=== PATIENT | male | born 1955 | race Caucasian/White ===

== ENCOUNTER 2021-06-19 09:45 | Day surgery (SDC) | payer BC, MEDICARE ==
[2021-06-19] MEDS: Sodium Chloride 0.9% 1,000 ML IV SCH (10:29)
[2021-06-19] MEDS ORDERED: fentaNYL 100 MCG/2 ML SDV ONE (12:10)
[2021-06-19] MEDS ORDERED: Propofol 200 MG/20 ML SDV ONE (12:10)
[2021-06-19] MEDS ORDERED: Midazolam 1 MG/ML 2 ML SDV ONE (12:10)
[2021-06-19 13:30] VITALS: BP 146/89; PULSE 45
--- NOTE | 2021-06-21 10:25 | OR ---
DATE OF PROCEDURE: 06/19/2021 SURGEON: Buster Isaacs MD PROCEDURE: Colonoscopy. FINDINGS: Normal colonoscopy. PREOPERATIVE DIAGNOSIS: Screening colonoscopy. POSTOPERATIVE DIAGNOSIS: Screening colonoscopy. RISKS: Risks, benefits, alternatives, and limitations including, but not limited to infection, bleeding, perforation, false positives and false negatives were explained to the patient and wished to proceed. PROCEDURE IN DETAIL: The patient was placed in left lateral decubitus position. Digital rectal exam was performed without abnormality. Scope was introduced and advanced atraumatically to the ileocecal valve. Scope was brought back to the ascending, transverse, descending colon, and retroflexed. No evidence of old or new blood. No masses. No polyps. No diverticulosis. No abnormalities on retroflexion. Greater than 8 minutes was spent removing the scope. The patient tolerated the procedure well. Approximately 90% of the luminal surface could be seen. Buster Isaacs MD /[id number]
== END 2021-06-19 14:00 | disposition home or self-care (01) ==
LOC: JP.SDS 09:45
PROVIDERS: ATTEND Surgery
DX: Z12.11 Encounter for screening for malignant neoplasm of colon (principal); I10 Essential (primary) hypertension
CPT/HCPCS: 45378; J2250; J2704; J3010; J7030

== ENCOUNTER 2021-09-20 06:03 | Emergency (ER) | payer BC, MEDICARE ==
[2021-09-20] MEDS ORDERED: Ketorolac 30 MG/ML SDV IM ONE (06:32)
[2021-09-20] MEDS ORDERED: Ondansetron 4 MG Tab.DIS PO ONE (06:34)
[2021-09-20 08:29] VITALS: BP 118/71; PULSE 57
== END 2021-09-20 09:15 | disposition home or self-care (01) ==
LOC: JP.ED 06:03
DX: R10.9 Unspecified abdominal pain (principal); I25.10 Atherosclerotic heart disease of native coronary artery without angina pectoris; E78.00 Pure hypercholesterolemia, unspecified; I10 Essential (primary) hypertension; Z79.82 Long term (current) use of aspirin; Z79.02 Long term (current) use of antithrombotics/antiplatelets; Z79.899 Other long term (current) drug therapy
CPT/HCPCS: 36415; 74176; 80053; 81001; 85025; 86140; 96372; 99284-25; 99285; J1885; Q0162